=== PATIENT | male | born 1955 | race Caucasian/White ===

== ENCOUNTER 2019-07-28 14:00 | Outpatient (RCR) | payer BC, SELFPAY | END 2019-07-28 14:05 | disposition home or self-care (01) | LOC: PT 14:00 | PROVIDERS: Visit Provider Orthopaedic Surgery Sports Medicine | DX: M75.121 Complete rotator cuff tear or rupture of right shoulder, not specified as traumatic (principal) | CPT/HCPCS: 97010; 97014; 97016; 97033; 97110; 97163; 97164; G0283 ==

== ENCOUNTER 2020-10-12 15:00 | Outpatient (RCR) | payer BC, SELFPAY | END 2020-10-12 15:05 | disposition home or self-care (01) | LOC: PT 15:00 | PROVIDERS: Visit Provider Internal Medicine | DX: M25.511 Pain in right shoulder; M25.532 Pain in left wrist | CPT/HCPCS: 97010; 97014; 97016; 97110; 97140; 97163; 97164; G0283 ==